=== PATIENT | male | born 1990 | race Caucasian/White ===

== ENCOUNTER 2019-10-08 10:38 | Emergency (ER) | payer OTHER ==
[~2019-10-08] VITALS: Ht 172.7 cm; Wt 68.0 kg
[~2019-10-08 10:38] MED LIST: ANAPROX DS550 MG PO; BACTRIM DS 8001 TA1 PO; MOTRIN600 MG PO; NKHM; NORCO 325 MG-51 TAB PO; PEN-VK500 MG PO; PERIDEX 480 ML480 ML PO
[2019-10-08 10:41] VITALS: BP 135/95
[2019-10-08] MEDS ORDERED: PREDNISONE50 MG PO (10:57)
[2019-10-08] MEDS ORDERED: CYCLOBENZAPRINE10 MG PO (10:57)
== END 2019-10-08 12:02 | disposition home or self-care (01) ==
LOC: ED 10:38
DX: S46.911A Strain of unspecified muscle, fascia and tendon at shoulder and upper arm level, right arm, initial encounter (principal); Z79.2 Long term (current) use of antibiotics; Z79.899 Other long term (current) drug therapy; X58.XXXA Exposure to other specified factors, initial encounter; Y93.89 Activity, other specified; Y92.89 Other specified places as the place of occurrence of the external cause; Y99.8 Other external cause status